=== PATIENT | male | born 1940 | race Caucasian/White ===

== ENCOUNTER 2019-07-19 14:53 | Inpatient (IN) ==
--- NOTE | 2019-07-19 15:53 | PROVIDER DOCUMENTATION ---
HPI-General Adult - General Chief Complaint: Fall Stated Complaint: FALL Time Seen by Provider: 07/19/19 15:32 Source: patient, family Allergies/Adverse Reactions: Patient Allergies Allergy/AdvReac Type Severity Reaction Status Date / Time clindamycin AdvReac Mild CONSTIPATIO Verified 06/23/18 06:27 N phenytoin sodium * AdvReac Mild Unknown Verified 06/23/18 06:27 [From Dilantin] phenytoin sodium extended * AdvReac Mild Unknown Verified 06/23/18 06:27 [From Dilantin] levofloxacin [From Levaquin] AdvReac Unknown Verified 06/23/18 06:27 Home Medications: Home Medication List Medication Instructions Recorded Confirmed Last Taken Type Acetaminophen [Tylenol] 500 mg PO PRN PRN 05/17/16 06/23/18 06/22/18 15:00 History Allopurinol 300 mg PO DAILY 05/17/16 06/23/18 06/22/18 04:00 History Insulin Glargine [Lantus] 35 units SUBQ DAILY 05/17/16 06/23/18 06/22/18 11:00 History Insulin Regular, Human [Humulin R 25 units SUBQ DIRECTED 05/17/16 06/23/18 06/22/18 10:00 History U-500] 20 units Lisinopril 20 mg PO DAILY 05/17/16 06/23/18 06/22/18 04:00 History Rivaroxaban [Xarelto] 20 mg PO DAILY 05/17/16 06/23/18 06/20/18 History Zolpidem [Ambien] 10 mg PO QHS 05/17/16 06/23/18 06/22/18 22:00 History Furosemide [Lasix] 20 mg PO QAM 05/18/16 06/23/18 06/22/18 04:00 History Aspirin EC 81 mg PO DAILY 01/17/17 06/23/18 06/22/18 04:00 History Lorazepam 1 mg PO TID 01/17/17 06/23/18 06/22/18 20:00 History Metoprolol Succinate E.r. [Toprol 100 mg PO DAILY 01/17/17 06/23/18 06/23/18 04:00 History Xl] Tamsulosin [Flomax] 0.4 mg PO DAILY 01/17/17 06/23/18 06/22/18 04:00 History Sulfamethoxazole/Trimethoprim 1 each PO BID 06/19/18 06/23/18 06/22/18 16:00 History [Bactrim Ds Tablet] Cephalexin [Keflex] 500 mg PO TID #15 capsule 06/23/18 Unknown Rx Hydrocodone/Acetaminophen [[place] 1 each PO Q6H PRN PRN #20 tablet 06/23/18 Unknown Rx 10-325 Tablet] Ondansetron HCl [Zofran] 4 mg PO Q4H PRN PRN #10 tablet 06/23/18 Unknown Rx - History of Present Illness -Gen Adult Nature of Presenting Problems: 79yo male presents via EMS with CC of recurrent falls. Pt and report that the patient fell twice today once from the couch and then again after missing the toilet. The pt does have a hx of falls due to neuropathy. The patient denies shortness of breath, chest pain, speech problems, or focal weakness. The pt denies LOC or head injury. Over the last few days the patient has had nausea and vomiting and decreased appetite. Review of Systems - Adult - REVIEW OF SYSTEMS - ADULT Constitutional: reports: no symptoms reported. denies: fever Eyes: reports: no symptoms reported. denies: eye pain Ears, Nose, Mouth & Throat: reports: no symptoms reported. denies: throat pain Cardiovascular: reports: no symptoms reported. denies: chest pain Respiratory: reports: cough. denies: shortness of breath Gastrointestinal: reports: abdominal pain Genitourinary: reports: no symptoms reported. denies: flank pain Musculoskeletal: reports: no symptoms reported Integumentary: reports: no symptoms reported Neurological: reports: loss of balance. denies: headache/migraines Psychiatric: reports: no symptoms reported. denies: alcohol/drug dependence Endocrine: reports: no symptoms reported Hematologic/Lymphatic: reports: no symptoms reported Allergic/Immunologic: reports: no symptoms reported Past History - Adult - PAST MEDICAL HISTORY-ADULT Review of Records: reports: Old Records Reviewed, Nursing Assessment Review, Medications Reviewed Cardiovascular: reports: CAD, other (carotid artery disease) Respiratory: denies: COPD - PRIOR SURGERIES/PROCEDURES Surgical/Procedure History: reports: CABG - IMMUNIZATION STATUS Childhood Immunizations: See Nurse Assessment Flu Vaccine: See Nurse Assessment - SOCIAL HISTORY Smoking: denies Substance Use: none/never Alcohol Use Frequency: never Physical Exam-General - CONSTITUTIONAL General Appearance: appears well, alert, no apparent distress - EYES Eyes: negative: conjuctival exudate, sclera injected, scleral icterus - HEAD, EARS, NOSE, MOUTH & THROAT HENMT: normocephalic/atraumatic, pharynx normal. negative: moist mucous membranes (dry) - NECK Neck: non-tender, supple - RESPIRATORY Respiratory: no respiratory distress, wheezing (bilaterally) - CARDIOVASCULAR Cardiovascular: no edema, tachycardia, other (irregular) - GASTROINTESTINAL (ABDOMEN) Abdominal Exam: soft, tenderness (mild). negative: guarding, rebound - MUSCULOSKELETAL Extremity: non-tender. negative: deformity, swelling - SKIN Integumentary: normal color, warm/dry. negative: cyanosis, diaphoresis, erythema - NEUROLOGIC Neurologic: referral agent II-XII nml as tested, no motor/sensory deficits, other (no pronator drift). negative: abnormal cerebellar tests, aphasia - PSYCHIATRIC Psych/Mental Status: normal mood/affect, normal thought content, normal thought process Progress - PLAN OF CARE/RESULTS Progress/Plan/Lab Results: Vital Signs - 8 hr 07/19/19 15:00 Temperature 98 F Pulse Rate 104 H Respiratory Rate 18 Blood Pressure 132/61 O2 Sat by Pulse Oximetry 91 L Result Diagrams: 07/19/19 17:06 07/19/19 17:06 - REASSESSMENT Reassessment #1 Status: other (Pt reportedly dropped to high 80s when standing and he does appear to have new onset heart failure with BNP almost 4000. He also has a UTI. Given current symptoms and recurrent falls with new onset heart failure, discussed case with hospitalist who have agreed to admission.) - XRAY 1 XRAY Study: Chest Impression: See EMR Report ( Patient: EVI MICHELLE [facility] Date: 07/19/19#: [id number] : 1940DM Status: REG [facility]#: [id number] Age/Sex: 79/MRoom/Bed: Loc: ED Ordering Physician: Edu rBavo MD Family Physician: Uzma Perry MD Reason for Procedure: Falls Signed EXAM: CHEST-2 VIEWS - 07/19/2019 HISTORY: Falls TECHNIQUE: Chest two views COMPARISON: 06/02/2018 FINDINGS: Heart size appears within normal limits. There is prosthetic aortic valve again seen. Inspiration is mildly shallow, with basilar subsegmental atelectasis. There is some prominence of central vascular markings. There is no dense consolidation, pleural effusion, or pneumothorax identified. IMPRESSION: Mildly shallow inspiration, with mild basilar atelectasis. Possible central vascular congestion. Electronically signed by Frank Woodward 07/19/2019 4:21 PM 07/19/19 1621 Interpreting Physician: Frank Woodward MD Dictated Date/Time: 07/19/19 1619 cc: Edu Bravo MD; Uzma Perry MD) - CT/MRI 1 CT Study: Head Impression: See EMR Report (Department of Imaging Patient: EVI MICHELLE Date: 07/19/19MR#: [id number] : 1940DM Status: REG ERAcct#: [id number] Age/Sex: 79/MRoom/Bed: Loc: ED Ordering Physician: Edu Bravo MD Family Physician: Uzma Perry MD Reason for Procedure: Falls ___ Signed EXAM: CT HEAD/C-SPINE W/O CONTRAST - 07/19/2019 HISTORY: Falls TECHNIQUE: CT head/cervical spine without contrast COMPARISON: 11/11/2011 CT head FINDINGS: CT head: There are atrophic changes and mild chronic microvascular ischemic changes. There is no indication of recent i nfarct, although acute infarcts may not be immediately visible. There are chronic small basal ganglia calcifications. There is no evidence of intracranial hemorrhage, mass effect, or midline shift. There is no evidence of skull fracture. There is mild paranasal sinus disease noted. CT cervical spine: The bones appear osteopenic. There is levo rotatory scoliosis versus artifact of positioning. There are substantial degenerative changes at atlantoaxial articulation. There is multilevel degenerative disc and degenerative facet disease. There is no fracture or subluxation identified. IMPRESSION: CT head: No visible acute intracranial abnormality. No evidence of intracranial injury. CT cervical spine: No evidence of fracture or subluxation. This exam was performed using automated exposure control, adjustment of mA or kV according to patient size, and/or use of iterative reconstruction technique. Electronically signed by Frank Woodward 07/19/2019 4:37 PM 07/19/19 267 Interpreting Physician: Frank Woodward MD Dictated Date/Time: 07/19/19 2571) Departure - Departure Date of Disposition Decision: 07/19/19 Time of Disposition Decision: 18:52 DIAGNOSIS: Recurrent falls Heart failure Qualifiers: Heart failure type: unspecified Heart failure chronicity: acute Qualified Code(s): I50.9 - Heart failure, unspecified UTI (urinary tract infection) Qualifiers: Urinary tract infection type: site unspecified Hematuria presence: with hematuria Qualified Code(s): N39.0 - Urinary tract infection, site not specified Disposition: ADMITTED INPATIENT 09 Certified Medical Emergency: Emergent Condition: Fair Referrals and Follow-Ups: Uzma Perry MD [Primary Care Provider] - - Critical Care Note This patient required my direct & personal management of CC.: No Attestation - Physician/ GABRIEL Attestation Patient care was provided by Advanced Practice Provider:: No The physician spent face to face time with patient:: Yes Advanced Practice Provider documentation review:: Supervising physician onsite and consulted in the evaluation and care of this patient. The physician did have a face to face encounter with the patient.
[2019-07-19] MEDS ORDERED: NS 500 ML IV ONE (15:57)
--- NOTE | 2019-07-19 16:23 | Diag Imaging Result Doc PS360 ---
EXAM: CHEST-2 VIEWS - 07/19/2019 HISTORY: Falls TECHNIQUE: Chest two views COMPARISON: 06/02/2018 FINDINGS: Heart size appears within normal limits. There is prosthetic aortic valve again seen. Inspiration is mildly shallow, with basilar subsegmental atelectasis. There is some prominence of central vascular markings. There is no dense consolidation, pleural effusion, or pneumothorax identified. IMPRESSION: Mildly shallow inspiration, with mild basilar atelectasis. Possible central vascular congestion. Electronically signed by Frank Woodward 07/19/2019 4:21 PM
--- NOTE | 2019-07-19 16:40 | Diag Imaging Result Doc PS360 ---
EXAM: CT HEAD/C-SPINE W/O CONTRAST - 07/19/2019 HISTORY: Falls TECHNIQUE: CT head/cervical spine without contrast COMPARISON: 11/11/2011 CT head FINDINGS: CT head: There are atrophic changes and mild chronic microvascular ischemic changes. There is no indication of recent infarct, although acute infarcts may not be immediately visible. There are chronic small basal ganglia calcifications. There is no evidence of intracranial hemorrhage, mass effect, or midline shift. There is no evidence of skull fracture. There is mild paranasal sinus disease noted. CT cervical spine: The bones appear osteopenic. There is levo rotatory scoliosis versus artifact of positioning. There are substantial degenerative changes at atlantoaxial articulation. There is multilevel degenerative disc and degenerative facet disease. There is no fracture or subluxation identified. IMPRESSION: CT head: No visible acute intracranial abnormality. No evidence of intracranial injury. CT cervical spine: No evidence of fracture or subluxation. This exam was performed using automated exposure control, adjustment of mA or kV according to patient size, and/or use of iterative reconstruction technique. Electronically signed by Frank Woodward 07/19/2019 4:37 PM
[2019-07-19 16:51] LABS: URINE SOURCE CLEAN CATCH
[2019-07-19 16:53] LABS: BILIRUBIN URINE NEGATIVE (NEGATIVE); BLOOD URINE SMALL (NEGATIVE); COLOR YELLOW; GLUCOSE URINE NEGATIVE (NEGATIVE); KETONE URINE TRACE mg/dL (NEGATIVE); LEUKOCYTES URINE LARGE (NEGATIVE); NITRITE URINE POSITIVE (NEGATIVE); PH URINE 6.5; PROTEIN URINE 50 mg/dL (NEGATIVE); SP GRAVITY URINE 1.013; TURBIDITY URINE TURBID (CLEAR); UROBILINOGEN URINE NORMAL (NORMAL)
[2019-07-19 16:56] LABS: UR EPITHELIAL CELLS <10 /HPF (<10); URINE BACTERIA 4+ /HPF; URINE WBC TNTC /HPF (<10)
[2019-07-19 17:05] LABS: URINE CASTS NONE SEEN; URINE CRYSTALS NONE SEEN; URINE SMALL ROUND CELLS NONE SEEN; URINE YEAST PRESENT
[2019-07-19 17:33] LABS: BASO# 0.03 X1000 (0.0-0.2); BASO% 0.3 % (0.0-0.8); EOS# 0.01 X1000 (0.0-0.7); EOS% 0.1 % (0.0-10.0); HEMATOCRIT 38.8 % (42.0-52.0); IMM GRAN# 0.06 X1000 (0.0-0.04); IMM GRAN% 0.5 % (0.0-0.5); LYMPH# 1.67 X1000 (1.2-3.4); LYMPH% 14.9 % (20.5-51.1); MCH 27.5 PG (27-31); MCHC 30.9 g/dL (33-37); MCV 88.8 FL (81-99); MONO# 0.98 X1000 (0.11-0.59); MONO% 8.7 % (1.7-9.3); MPV 9.4 FL (7.4-10.4); NEUT# 8.48 X1000 (1.4-6.5); NEUT% 75.5 % (42.2-75.2); PLT 252 X1000 (130-400); RBC 4.37 XMIL (4.7-6.1); RDW 15.8 % (11.5-14.5); WBC 11.23 X1000 (4.8-10.8)
[2019-07-19 17:40] LABS: INR 1.27; PROTIME 16.1 Seconds (11.0-16.0)
[2019-07-19 17:41] LABS: PTT 35.1 Seconds (22.3-41.8)
[2019-07-19 18:02] LABS: AGAP 16; ALB/GLOB RATIO 1.4; ALBUMIN 3.8 g/dL (3.5-5.0); ALKALINE PHOSPHATASE 83 U/L (32-122); BUN 13 mg/dL (8-22); CALCIUM 9.1 mg/dL (8.8-10.2); CHLORIDE 97 mmol/L (98-107); COSMO 276; ESTIMATED GFR > 60; GLUCOSE 170 mg/dL (70-104); GOT 17 U/L (10-34); GPT 13 U/L (10-44); POTASSIUM 4.3 mmol/L (3.5-5.1); SODIUM 136 mmol/L (136-145); TCO2 23 mmol/L (25-35); TOTAL BILIRUBIN 0.88 mg/dL (0.20-1.00); TOTAL PROTEIN 6.6 g/dL (6.3-8.3)
[2019-07-19 18:05] LABS: CK PROFILE 271 U/L (24-204)
[2019-07-19 18:24] LABS: CK INDEX 0.8 (0.0-2.5); CK-MB 2.24 ng/mL (0.0-5.0)
[2019-07-19] MEDS ORDERED: ROCEPHIN 2 GM in NS 50 ML IV ONE (18:38)
--- NOTE | 2019-07-19 20:37 | HISTORY AND PHYSICAL ---
PRIMARY CARE PHYSICIAN: Dr. Perry. CHIEF COMPLAINT: Fall. Mild shortness of breath. HISTORY OF PRESENTING ILLNESS: A 79-year-old male with a history of gout, coronary disease, atrial fibrillation, hypertension, diabetes mellitus type 2, who presented to emergency department after he had a fall. He states that he just felt weak and kind of landed on his sofa cushion which made him fall to the floor. He was brought to the emergency department. He had elevated BNP and he also had some mild shortness of breath and due to suspicion of heart failure, it was thought that he would need admission for further management. At the time of my examination, patient denied any headache, fever, chills, chest pain, hemoptysis, melena, but complained of some weakness and having a fall. PAST MEDICAL HISTORY: Includes gout, coronary artery disease, atrial fibrillation, hypertension, diabetes mellitus type 2, CVA, prostate cancer. PAST SURGICAL HISTORY: Aortic valve replacement, hernia repair, left carotid endarterectomy. ALLERGIES: Clindamycin, phenytoin. CURRENT MEDICATIONS: Include allopurinol 300 mg p.o. daily, aspirin 81 mg p.o. daily, Lasix 20 mg p.o. q.a.m., [place] 10/325 one p.o. q.6 hours, Lantus 35 units subcutaneous daily, insulin regular 25 units with meals, lisinopril 20 mg p.o. daily, lorazepam 1 mg p.o. t.i.d., metoprolol 100 mg p.o. daily, Xarelto 20 mg p.o. daily, tamsulosin 0.4 mg p.o. daily, Ambien 10 mg p.o. at bedtime. SOCIAL HISTORY: He is a former smoker. No history of alcohol or illicit drug use. FAMILY HISTORY: Positive for coronary disease in mother, father. REVIEW OF SYSTEMS: 14 point review of systems as in HPI. Other systems negative. PHYSICAL EXAMINATION: GENERAL: Cooperative, friendly male. He is resting more comfortably now. VITAL SIGNS: Temperature 98 degrees, pulse 104, respiration 18, blood pressure 132/61, saturating 91%. HEENT: Atraumatic, normocephalic. Extraocular movements intact. PERRLA. NECK: No masses. CHEST: Bibasilar rales. CARDIOVASCULAR: Irregular. ABDOMEN: Soft, obese. Positive bowel sounds. EXTREMITIES: No edema. NEUROLOGIC: He is awake, alert, oriented x3. : No bladder distention. SKIN: Warm. LABORATORIES AND STUDIES: WBC 11.23, hemoglobin 12.0, hematocrit 38.8, platelets 252,000. Sodium 136, potassium 4.3, chloride 97, CO2 is 23, BUN is 13, creatinine is 1.0, glucose 170. ProBNP is 3877. Chest x-ray shows possible central vascular congestion. UA is nitrite positive and large leukocytes. ASSESSMENT: A 79-year-old male with a history of coronary disease, atrial fibrillation, hypertension, diabetes mellitus type 2, who presented to emergency department after he had a fall. He was also having some weakness along with some mild shortness of breath. He was evaluated in the emergency department and due to his presenting symptoms he will need admission for further management. 1. Congestive heart failure unspecified. 2. Suspected urinary tract infection. 3. Atrial fibrillation. 4. Diabetes mellitus type 2. PLAN: 1. We will admit patient to medical floor with telemetry. 2. We will check an echocardiogram. 3. Continue gentle diuresis with Lasix. 4. Consult Cardiology. 5. Check urine cultures. Start patient on IV antibiotics. 6. We will monitor patient on telemetry and continue his anticoagulation. 7. Monitor blood glucose and continue patient on sliding scale insulin regimen. 8. The patient is already on Xarelto and this will suffice for DVT prophylaxis. 9. We will continue to follow, reassess, make further recommendation based on patient's clinical course. cc: Sam Turner MD
--- NOTE | 2019-07-19 20:47 | EKG Report ---
Test Performed on : 07/19/2019 7:25:06 PM Test Reason : Falls Blood Pressure : / mmHG Vent. Rate : 101 BPM Atrial Rate : 278 BPM P-R Int : 000 ms QRS Dur : 088 ms QT Int : 370 ms P-R-T Axes : 102 006 046 degrees QTc Int : 479 ms Atrial flutter. with variable AV block. Possible Anterior infarct , age undetermined Abnormal ECG When compared with ECG of 12-JUN-2018 15:01, Atrial flutter. has replaced Sinus rhythm. ST elevation now present in Inferior leads Nonspecific T wave abnormality no longer evident in Inferior leads Unconfirmed Result
[2019-07-19] MEDS ORDERED: ZOFRAN IV PRN (21:53)
[2019-07-19] MEDS ORDERED: TYLENOL PO PRN (21:53)
[2019-07-19] MEDS: HUMULIN R SUBQ SCH (22:45)
[2019-07-19] MEDS: LASIX IV SCH (22:45)
[2019-07-19] MEDS: VOLTAREN 1% GEL TOP SCH (22:46)
[2019-07-19] MEDS ORDERED: ATIVAN PO SCH (23:00)
[2019-07-19] MEDS: ULTRACET 37.5MG/325MG PO PRN (23:41)
[2019-07-19] MEDS: AMBIEN PO SCH (23:41)
[2019-07-20] MEDS: ATIVAN PO SCH ×4 (05:52→21:29)
[2019-07-20] MEDS: HUMULIN R SUBQ SCH ×5 (05:53→21:29)
--- NOTE | 2019-07-20 07:11 | Diag Imaging Result Doc PS360 ---
EXAM: CT HEAD W/O CONTRAST 07/20/2019 HISTORY: Fall, hit head TECHNIQUE: This exam was performed using automated exposure control, adjustment of mA or kV according to patient size, and/or use of iterative reconstruction technique. COMMENT: There are patchy lucencies throughout the white matter of both hemispheres. This is particularly evident in the areas of the atria of the lateral ventricles. There are small lacunae in the right caudate nucleus and there are calcifications in the globus pallidus bilaterally. There is no evidence of mass effect, bleed, or abnormal extra-axial fluid collection. There are no significant changes since 07/19/2019. The calvarium is intact. There is some mucosal thickening in the anterior ethmoid air cells and the right maxillary sinus. IMPRESSION: Chronic ischemic changes. No evidence of acute intracranial disease. Ethmoid and mild right maxillary chronic sinusitis. Electronically signed by Nomi Altman 07/20/2019 7:09 AM
[2019-07-20] MEDS: ASPIRIN EC PO SCH (08:04)
[2019-07-20] MEDS: XARELTO PO SCH (08:04)
[2019-07-20] MEDS: ULTRACET 37.5MG/325MG PO PRN ×2 (08:06→16:57)
[2019-07-20] MEDS: VOLTAREN 1% GEL TOP SCH ×2 (08:12→21:30)
[2019-07-20 08:18] LABS: BASO# 0.02 X1000 (0.0-0.2); BASO% 0.3 % (0.0-0.8); EOS# 0.03 X1000 (0.0-0.7); EOS% 0.4 % (0.0-10.0); HEMATOCRIT 38.1 % (42.0-52.0); HEMOGLOBIN 11.5 g/dL (14.0-18.0); IMM GRAN# 0.06 X1000 (0.0-0.04); IMM GRAN% 0.8 % (0.0-0.5); LYMPH# 1.61 X1000 (1.2-3.4); LYMPH% 21.3 % (20.5-51.1); MCHC 30.2 g/dL (33-37); MCV 89.4 FL (81-99); MONO# 0.92 X1000 (0.11-0.59); MONO% 12.2 % (1.7-9.3); MPV 9.5 FL (7.4-10.4); NEUT# 4.91 X1000 (1.4-6.5); PLT 259 X1000 (130-400); RBC 4.26 XMIL (4.7-6.1); RDW 15.9 % (11.5-14.5); WBC 7.55 X1000 (4.8-10.8)
[2019-07-20 08:49] LABS: AGAP 15; BUN 15 mg/dL (8-22); CALCIUM 9.5 mg/dL (8.8-10.2); CHLORIDE 97 mmol/L (98-107); COSMO 278; CREATININE 0.9 mg/dL (0.7-1.2); ESTIMATED GFR > 60; GLUCOSE 161 mg/dL (70-104); POTASSIUM 4.7 mmol/L (3.5-5.1); SODIUM 137 mmol/L (136-145); TCO2 25 mmol/L (25-35)
[2019-07-20] MEDS: LASIX IV SCH ×2 (10:54→21:29)
--- NOTE | 2019-07-20 14:09 | PROGRESS NOTE ---
DATE: 07/20/2019 Mr. Wallace a patient of Dr. Perry, 79-year-old, history of gout, coronary artery disease, atrial fibrillation, hypertension, diabetes mellitus type 2, presented to the emergency department after he had a fall. States that he just felt weak and kind of landed on the sofa cushion which made him fall on the floor, brought to the emergency department had elevated BNP and also some mild shortness of breath. Due to suspicion of heart failure they put him in the hospital. PAST MEDICAL HISTORY: Once again includes 1. Gout. 2. Coronary artery disease. 3. Atrial fibrillation. 4. Hypertension. 5. Diabetes mellitus type 2. 6. History of CVA. 7. History of prostate cancer. He has aortic valve replacement, hernia repair, left carotid endarterectomy. EXAM: Today he states he feels better. He is breathing comfortably. Temperature 98.2 degrees, pulse 70, respirations 18, blood pressure 149/50. Pupils are equal and round.Lungs: Clear in all lung [place]. Cardiovascular: Regular rhythm and rate without murmur or S3. Abdomen: Soft. Skin: Warm and dry. LAB: Review of his lab and his radiographic studies, head CT without contrast was chronic ischemic changes. No evidence of acute intracranial disease. Ethmoid and mild right maxillary chronic sinusitis. Head and cervical CT no visible acute intracranial abnormality. No evidence of intracranial injury. CT of the spine, no evidence of fracture, subluxation. Chest x-ray mild shallow inspiration with mild basilar atelectasis, possible central vascular congestion. ASSESSMENT AND PLAN: 1. Congestive heart failure unspecific, some signs of pulmonary venous hypertension. 2. Suspected urinary tract infection. 3. Atrial fibrillation. 4. Diabetes mellitus type 2. He has underlying history of coronary artery disease and atrial fibrillation, hypertension with diabetes so going to continue to have him on telemetry. He is already on Xarelto. 5. Review of his orders, getting aspirin 81 mg a day, diclofenac topical treatment for his arthritis, Lasix 20 mg IV q.12 and Xarelto 20 mg p.o. daily, takes Ambien 10 mg at night. Cardiology is following. Review of his lab from today white count 7550, hematocrit 38, platelet count 259,000, sodium 137, potassium 4.7, chloride 97, BUN 15, creatinine 0.9, blood sugars 202, 181, 161, 166. cc: Aden Lopez MD
[2019-07-20] MEDS: PRINIVIL PO SCH (17:25)
[2019-07-20] MEDS: TOPROL XL PO SCH (17:25)
[2019-07-20] MEDS ORDERED: AMBIEN PO SCH (21:00)
[2019-07-20] MEDS: AMBIEN PO SCH (21:29)
[2019-07-21] MEDS: HUMULIN R SUBQ SCH ×4 (06:01→21:26)
[2019-07-21] MEDS: ATIVAN PO SCH ×3 (06:09→21:24)
[2019-07-21] MEDS: XARELTO PO SCH (08:25)
[2019-07-21] MEDS: PRINIVIL PO SCH (08:25)
[2019-07-21] MEDS: ASPIRIN EC PO SCH (08:25)
[2019-07-21] MEDS: TOPROL XL PO SCH (08:25)
[2019-07-21] MEDS: VOLTAREN 1% GEL TOP SCH ×3 (08:26→21:28)
[2019-07-21] MEDS: FLOMAX PO SCH (10:11)
[2019-07-21] MEDS: ZYLOPRIM PO SCH (10:11)
[2019-07-21] MEDS: LANTUS INSULIN SUBQ SCH (10:11)
[2019-07-21] MEDS: LASIX IV SCH ×2 (10:11→21:25)
--- NOTE | 2019-07-21 10:16 | PROGRESS NOTE ---
DATE: 07/21/2019 SUBJECTIVE: This patient seems to be feeling better today compared with the previous days. He is not having shortness of breath at this moment, but he does have generalized weakness. I will request a new echocardiogram since I do not have one in the system. I will continue with same management. I will add antibiotics since he has chronic UTIs. Apparently, he has been seen by Dr. Anthony around 6 weeks ago. He has a history of BPH. He has been admitted for possible CHF exacerbation. He is in atrial fibrillation, rate controlled and anticoagulation. OBJECTIVE: Vital Signs: Temperature 98 degrees, pulse 71, respiratory rate 19, blood pressure 116/41, oxygen saturation 100% on room air. HEENT: Head normocephalic. He does have a right periorbital ecchymosis. Chest: Clear to auscultation. Some crepitus at the bases. Cardiovascular: Irregularly irregular rate and rhythm. Abdomen: Soft. He does have a large scar at the level of the lower abdomen with a chronic wound. I do not see any open wound or secretion from that area. Extremities: 1+ lower extremity edema. No clubbing. No cyanosis. Neurological: The patient is awake and alert. He is oriented x3. No focal deficits. LABORATORY: No lab work done today. I will repeat the lab work in the morning. ASSESSMENT AND PLAN: 1. Likely CHF. He does have a associate attorney but not here in [place]. Apparently he has a history of aortic valve replacement. I will get a new echocardiogram since I do not have one in the system. I will continue with same management for now since he is feeling better. 2. Urinary tract infection due to Citrobacter primary. He does have a long history of urinary tract infection before with Escherichia coli and barby. Apparently he has he has some problems with levofloxacin and ceftriaxone, has an intermittent sensitivity to these bacteria. I will start this patient on nitrofurantoin to see how he does and likely he needs to be seen by either an Infectious Disease doctor and/or urologist. As per the patient he saw the urologist around 6 weeks ago. 3. BPH. Continue with Flomax. 4. Atrial fibrillation, rate controlled. Continue with Xarelto and Toprol-XL. 5. History of gout, aware. 6. History of coronary artery disease. We will check an echocardiogram to start from there. 7. Type 2 diabetes. I have placed this patient back on his home medications. I will get a hemoglobin A1c as well. 8. Generalized weakness and physical deconditioning. This patient basically came also because he had a fall with a right eye bruise. I will ask Physical Therapy and Occupational Therapy to evaluate this patient to see if he needs to go to a rehab center. cc: Kiet Corbin MD
--- NOTE | 2019-07-21 12:35 | EKG Report ---
Test Performed on : 07/21/2019 12:23:26 PM Test Reason : afib Blood Pressure : / mmHG Vent. Rate : 069 BPM Atrial Rate : 276 BPM P-R Int : 000 ms QRS Dur : 100 ms QT Int : 450 ms P-R-T Axes : 092 -02 046 degrees QTc Int : 482 ms Critical Test Result: STEMI Atrial flutter. with 4:1 AV conduction. Inferior infarct , possibly acute ACUTE [place] / STEMI Abnormal ECG When compared with ECG of 19-JUL-2019 19:25, (Unconfirmed) Inferior infarct is now present ST no longer depressed in Anterior leads Confirmed by Bernardo Barrios MD ([id number]) on 07/22/2019 7:21:43 PM
--- NOTE | 2019-07-21 13:08 | Diag Imaging Result Doc PS360 ---
EXAM: CHEST-2 VIEWS HISTORY: shortness of breath TECHNIQUE: Two views COMPARISON: 07/19/2019 FINDINGS: The lungs are well expanded. The heart is not enlarged. A heart valve has been replaced. The vessels are not distended. There are no infiltrates. No pleural effusions. IMPRESSION: No acute abnormality. Electronically signed by Brennan Mancia 07/21/2019 1:05 PM
[2019-07-21] MEDS: BETAPACE PO SCH ×2 (13:51→21:24)
[2019-07-21 14:12] LABS: CALCIUM 9.2 mg/dL (8.8-10.2); CREATININE 1.2 mg/dL (0.7-1.2); MAGNESIUM 1.5 mg/dL (1.5-2.7); POTASSIUM 4.2 mmol/L (3.5-5.1)
[2019-07-21] MEDS: MACRODANTIN PO SCH ×2 (14:16→21:24)
[2019-07-21] MEDS: ULTRACET 37.5MG/325MG PO PRN ×2 (14:23→21:40)
--- NOTE | 2019-07-21 14:56 | CONSULTATION ---
DATE OF CONSULTATION: 07/21/2019 IMPRESSION: 1. Weakness and fall but no syncope. 2. Paroxysmal fibrillation in the past with the patient having recent onset of atrial flutter. 3. Aortic valve disorder with previous aortic valve replacement with bioprosthesis. 4. Severe aortic stenosis. 5. Obesity. 6. Hypertension. 7. Type 2 diabetes mellitus. 8. Urinary tract infection presently. 9. Status post recent hernia repair. RECOMMENDATIONS: 1. Continue current anticoagulation regimen. 2. Switch from metoprolol to sotalol 80 mg p.o. b.i.d. in an effort to restore/maintain sinus rhythm. 3. Repeat chest x-ray. 4. Check magnesium level. 5. Conservative cardiovascular management overall. 6. Given degree of weakness that seems to be persistent, he may very well benefit from rehabilitation at detention facility prior to returning home. 7. Treat urinary tract infection as you are doing. HISTORY: This 79-year-old, white male with past history of paroxysmal atrial arrhythmias, previous aortic valve replacement with bioprosthesis for severe aortic stenosis, hypertension, type 2 diabetes mellitus, obesity, recent hernia repair, and recent urinary tract infection was admitted after he suffered a fall. He describes being severely weak and slipped down to the floor from the couch and could not get up. Fire department was reportedly called and insisted that he come to the hospital. He has been persistently weak. He was noted to be in atrial flutter. On his previous admission in [place] earlier this year, he was in sinus rhythm. He denies any chest pain or shortness of breath on room air. He is not aware of any fever. PAST MEDICAL HISTORY: 1. Aortic valve disorder with previous aortic valve replacement for severe aortic stenosis. Patient had bioprosthesis placed. 2. Paroxysmal atrial arrhythmias. 3. Hypertension. 4. Type 2 diabetes mellitus. 5. Obesity. 6. Previous cerebrovascular accident. 7. Peripheral vascular disease. 8. Prostate cancer. 9. Gout. 10. Past surgical history includes aortic valve replacement with bioprosthesis, left carotid endarterectomy, hernia repair on 2 occasions, appendectomy, tonsillectomy, unspecified abdominal surgery, and unspecified hip surgery. 11. He has multiple drug allergies as listed in the chart. MEDICATIONS PRIOR TO ADMISSION: As listed. He continues on chronic anticoagulation. SOCIAL HISTORY: He is and lives with his . Does not smoke or use alcohol. FAMILY HISTORY: Negative for premature coronary disease. REVIEW OF SYSTEMS: Pulmonary: Negative. Gastrointestinal.: Noncontributory beyond history of present illness. Constitutional: Negative. Review of systems negative/noncontributory beyond history of present illness with 14 total systems reviewed. PHYSICAL EXAMINATION: General: Reveals an obese, elderly white male in no distress on room air. Vital signs: Blood pressure 116/41, heart rate 71, oxygen saturation 98% on room air. HEENT: Extraocular movements appear intact. Mucous membranes are moist. Neck: Supple without discernible jugular venous distention. There are no carotid bruits. Chest: Clear to auscultation bilaterally. Cardiac Exam: Irregular rate and rhythm without appreciable murmur, rub, or gallop. Abdomen: Soft. Bowel sounds audible. Extremities: Without edema. Neurologic: Reveals him to be awake/alert and oriented. Speech is fluent. He moves all 4 extremities equally well. PERTINENT DATA: Twelve lead EKG demonstrates atrial flutter with controlled rate and 2:1 AV conduction. The 12 lead EKG demonstrates atrial flutter with 4:1 AV conduction and nonspecific ST and T-wave abnormality. LABORATORY DATA: Includes a sodium 137, potassium 4.7, chloride 97, carbon dioxide 25, BUN 15, creatinine 0.9. Glucose 161. CPK 271, CPK MB 2.24, CPK MB index 0.8, pro-B natriuretic peptide level 3977. White blood cell count 7.55, hematocrit 38.1, hemoglobin 11.5, platelet count 259,000. Urinalysis noteworthy for [id number]-count white blood cells. Chest x-ray is reviewed and is a poor film due to poor inspiration. cc: Pancho Brunner MD
[2019-07-21] MEDS: AMBIEN PO SCH (21:24)
[2019-07-22] MEDS: MACRODANTIN PO SCH ×2 (02:22→08:50)
[2019-07-22] MEDS: HUMULIN R SUBQ SCH ×4 (06:06→21:14)
[2019-07-22] MEDS: ATIVAN PO SCH ×3 (06:08→20:22)
[2019-07-22 07:25] LABS: HEMOGLOBIN A1C 7.1 % (4.8-6.0)
[2019-07-22 07:28] LABS: CALCIUM 8.9 mg/dL (8.8-10.2); CREATININE 1.2 mg/dL (0.7-1.2); POTASSIUM 3.9 mmol/L (3.5-5.1)
--- NOTE | 2019-07-22 08:11 | EKG Report ---
Test Performed on : 07/22/2019 06:32:21 AM Test Reason : afib/aflutter Blood Pressure : / mmHG Vent. Rate : 051 BPM Atrial Rate : 051 BPM P-R Int : 316 ms QRS Dur : 080 ms QT Int : 480 ms P-R-T Axes : 090 -12 001 degrees QTc Int : 442 ms Atrial flutter. Inferior infarct (cited on or before 19-JUL-2019) Anterior infarct , age undetermined Abnormal ECG When compared with ECG of 21-JUL-2019 12:23, (Unconfirmed) Questionable change in QRS duration Anterior infarct is now present Confirmed by Bernardo Barrios MD ([id number]) on 07/22/2019 7:32:02 PM
[2019-07-22] MEDS: ZYLOPRIM PO SCH (08:50)
[2019-07-22] MEDS: BETAPACE PO SCH ×2 (08:50→20:22)
[2019-07-22] MEDS: ULTRACET 37.5MG/325MG PO PRN ×2 (08:50→18:12)
[2019-07-22] MEDS: ASPIRIN EC PO SCH (08:50)
[2019-07-22] MEDS: PRINIVIL PO SCH (08:50)
[2019-07-22] MEDS: FLOMAX PO SCH (08:50)
[2019-07-22] MEDS: XARELTO PO SCH (08:50)
[2019-07-22] MEDS: VOLTAREN 1% GEL TOP SCH ×2 (08:51→20:24)
[2019-07-22] MEDS ORDERED: LASIX IV SCH (09:00)
[2019-07-22] MEDS: MIRALAX PO SCH ×3 (09:16→20:23)
[2019-07-22] MEDS: LANTUS INSULIN SUBQ SCH (09:16)
--- NOTE | 2019-07-22 09:24 | PROGRESS NOTE ---
DATE: 07/22/2019 SUBJECTIVE: The patient seems to be feeling better today, but he is complaining of generalized weakness. He has been evaluated by Cardiology Department. I will continue following their recommendations, pending echocardiogram results. OBJECTIVE: Vital Signs: Temperature 97.5 degrees, pulse 61, respiratory rate 18, blood pressure 95/62, oxygen saturation 99% on room air. HEENT: Head normocephalic. He does have a right periorbital ecchymosis. Chest: Clear to auscultation, some crepitus at the bases. Cardiovascular: Irregularly irregular rate and rhythm. Abdomen: Soft. He does have a large scar at the level of the lower abdomen which is chronic. I do not see any open wound or secretion from that area. Extremities: Trace to 1+ lower extremity edema. No clubbing. No cyanosis. Neurological: The patient is awake and alert. He is oriented x3. No focal deficits. LABORATORY: Sodium 133, potassium 3.9, chloride 93, bicarbonate 25, BUN 35, creatinine 1.2, glucose 143, calcium 8.9, hemoglobin A1c 7.1. ASSESSMENT AND PLAN: 1. Paroxysmal atrial fibrillation with recent atrial flutter, seems to be better controlled, continue anticoagulation and medications. Cardiology on board. 2. Aortic valve disorder with previous aortic valve replacement, seems to be stable. We will continue with same management for now. Cardiology Department on board. 3. Severe aortic stenosis as above. 4. Urinary tract infection with Citrobacter. 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 Apparently, I cannot put this patient on levofloxacin because he had some problems before with tendinitis/tendon rupture, and ceftriaxone has an intermediate sensitivity. We will continue with nitrofurantoin. He is not complaining of any kind of burning sensation or symptoms, but given his presentation I will continue with that, and I will try to get a urologist as an outpatient who saw this patient. 5. Benign prostatic hypertrophy continue with Flomax. 6. Atrial fibrillation, rate controlled. Continue with Xarelto and Toprol-XL. 7. History of gout, aware. 8. History of coronary artery disease. Pending echocardiogram. 9. Type 2 diabetes. Continue with his home medication. Hemoglobin A1c is good at 7.1. 10. Generalized weakness and physical deconditioning. The plan is to send this patient to a rehab center. He has been falling multiple times. Physical therapy on board, as well as occupational therapy. cc: Kiet Corbin MD
--- NOTE | 2019-07-22 15:21 | PROGRESS NOTE ---
DATE: 07/22/2019 SUBJECTIVE: Patient denies chest discomfort or shortness of breath. He still has some generalized weakness. He continues in atrial flutter with controlled rate despite initiation of sotalol yesterday. He has been on Xarelto long-term without interruption in over 6 months. OBJECTIVE: Vital Signs: Blood pressure 98/62, heart rate 62 with ECG monitor showing atrial flutter. Oxygen saturation 98% on room air. Neck: There is no significant jugular venous distention. Chest: Chest is clear to auscultation bilaterally. Cardiac Exam: Reveals an irregular rate and rhythm without appreciable murmur or gallop. Abdomen: Soft. Bowel sounds normal. Extremities: Without edema. LABORATORY DATA: Includes a sodium 133, potassium 3.9, chloride 93, carbon dioxide 25, BUN 35, creatinine 1.2. Glucose 143, magnesium 1.7. IMPRESSION: 1. Recent weakness and associated fall, but no syncope. 2. Paroxysmal atrial arrhythmias. Patient currently in atrial flutter. 3. Aortic valve disorder with previous aortic valve replacement with bioprosthesis. The patient did not have any significant coronary disease at that time. Aortic valve replacement was performed for severe stenosis. 4. Obesity. 5. Hypertension. 6. Type 2 diabetes mellitus. 7. Urinary tract infection with Citrobacter species. 8. Status post recent hernia repair. RECOMMENDATIONS: 1. Continue Xarelto at current dose. 2. Continue sotalol 80 mg p.o. b.i.d. 3. If atrial flutter persists, pursue cardioversion in a.m. 4. Favor use of cefepime for urinary tract infection. 5. Conservative cardiovascular management overall. 6. Given degree of weakness, this seems to be persistent and he would probably benefit from rehabilitation at [facility] prior to returning home. cc: Pancho Brunner MD
[2019-07-22] MEDS: MAXIPIME 0.5 GM in NS 50 ML IV SCH (20:22)
[2019-07-22] MEDS: AMBIEN PO SCH (20:22)
--- NOTE | 2019-07-22 21:10 | ECHO REPORT ---
ORDER DATE: 07/19/2019 MEASUREMENTS: Septal thickness 0.8, left ventricular internal diameter end diastole 4.2, posterior wall thickness 0.8, left ventricular internal diameter systole 2.9, aortic root 2.5. SUMMARY: 1. Fair quality study. Intravenous echo contrast agent Optison was utilized to enhance endocardial definition. 2. Aortic valve was replaced with bioprosthesis, which is not well imaged. The peak gradient across aortic valve is 22 mmHg with a mean gradient of 11 mmHg. Doppler values are consistent with adequate aortic valve prosthetic function. Mild mitral annular calcification is demonstrated. There is trace mitral regurgitation. Tricuspid valve was without evidence of structural abnormality while pulmonic valve is not well demonstrated. There is trace tricuspid regurgitation. The estimated systolic PA pressure by Doppler is 40 mmHg suggesting mild pulmonary hypertension. The aortic root is normal in size. 3. Normal left ventricular dimensions suggested on two-dimensional images. The estimated left ventricular ejection fraction appears to be at least 65%. No regional wall motion abnormality can be appreciated. Left atrium is borderline enlarged. The right atrium and right ventricle are normal in size with normal right ventricular systolic function. 4. No pericardial effusion. 5. Inferior vena cava not well demonstrated. cc: MD Sam Gamboa MD
[2019-07-23] MEDS: HUMULIN R SUBQ SCH ×4 (05:59→23:31)
[2019-07-23] MEDS: ATIVAN PO SCH ×3 (05:59→21:45)
[2019-07-23 06:34] LABS: HEMATOCRIT 35.8 % (42.0-52.0); HEMOGLOBIN 11.3 g/dL (14.0-18.0); MCH 27.8 PG (27-31); MCHC 31.6 g/dL (33-37); MPV 9.5 FL (7.4-10.4); RBC 4.07 XMIL (4.7-6.1); RDW 15.5 % (11.5-14.5); WBC 7.58 X1000 (4.8-10.8)
[2019-07-23 07:04] LABS: AGAP 13; BUN 46 mg/dL (8-22); CALCIUM 9.2 mg/dL (8.8-10.2); CHLORIDE 92 mmol/L (98-107); COSMO 274; ESTIMATED GFR > 60; GLUCOSE 128 mg/dL (70-104); MAGNESIUM 1.8 mg/dL (1.5-2.7); PHOSPHORUS 4.3 mg/dL (2.7-4.5); POTASSIUM 4.3 mmol/L (3.5-5.1); SODIUM 130 mmol/L (136-145); TCO2 25 mmol/L (25-35)
--- NOTE | 2019-07-23 08:22 | EKG Report ---
Test Performed on : 07/23/2019 07:15:26 AM Test Reason : afib/aflutter Blood Pressure : / mmHG Vent. Rate : 048 BPM Atrial Rate : 249 BPM P-R Int : 000 ms QRS Dur : 092 ms QT Int : 490 ms P-R-T Axes : -83 -01 007 degrees QTc Int : 437 ms Critical Test Result: Low HR Atrial flutter. with variable AV block. Cannot rule out Inferior infarct (cited on or before 21-JUL-2019) Abnormal ECG When compared with ECG of 22-JUL-2019 06:32, Criteria for Anterior infarct are no longer present ST less depressed in Anterior leads T wave inversion no longer evident in Anterior leads Confirmed by Bernardo Barrios MD ([id number]) on 07/23/2019 8:18:44 PM
[2019-07-23] MEDS: MIRALAX PO SCH ×2 (10:14→21:45)
[2019-07-23] MEDS: LANTUS INSULIN SUBQ SCH (10:34)
[2019-07-23] MEDS: VOLTAREN 1% GEL TOP SCH ×2 (10:34→21:46)
[2019-07-23] MEDS: MAXIPIME 0.5 GM in NS 50 ML IV SCH ×2 (10:38→21:44)
[2019-07-23] MEDS: ZYLOPRIM PO SCH (10:39)
[2019-07-23] MEDS: BETAPACE PO SCH ×2 (10:40→21:44)
[2019-07-23] MEDS: LASIX PO SCH (10:41)
[2019-07-23] MEDS: ASPIRIN EC PO SCH (10:42)
[2019-07-23] MEDS: XARELTO PO SCH (10:42)
[2019-07-23] MEDS: FLOMAX PO SCH (10:42)
[2019-07-23] MEDS: PRINIVIL PO SCH (10:43)
--- NOTE | 2019-07-23 11:02 | PROGRESS NOTE ---
DATE: 07/23/2019 SUBJECTIVE: The patient seems to be feeling better. He is complaining of generalized weakness. Cardiology department probably will do a cardioversion today because he is still in atrial flutter. He has been placed NPO. OBJECTIVE: Vital Signs: Temperature 97.7 degrees, pulse 64, respiratory rate 17, blood pressure 121/63, oxygen saturation 100% on room air. HEENT: Head normocephalic. He does have a right periorbital ecchymosis. Chest: Clear to auscultation. Some crepitus at the bases. Cardiovascular: Irregularly irregular rate and rhythm. Abdomen: Soft. He does have a large scar at the level of the lower abdomen which is chronic and he seems to be healing well. I do not see any open wound or secretion from that area. Extremities: Trace to 1+ lower extremity edema. No clubbing. No cyanosis. Neurological Examination: The patient is awake and alert. He is oriented x3. No deficits. Laboratory: WBCs 7.5, hemoglobin 11.3, hematocrit 35.8, platelets 271,000. Sodium 130, potassium 4.3, chloride 92, bicarbonate 25, BUN 46, creatinine 1, glucose 128, calcium 9.2, magnesium 1.8. ASSESSMENT AND PLAN: 1. Paroxysmal atrial fibrillation with recent atrial flutter, seems to be better controlled. Continue with anticoagulation and medications. Cardiology on board. 2. Aortic valve disorder with previous aortic valve placement, seems to be stable. We will continue with the same management for now. Cardiology department on board. 3. Severe aortic stenosis, as above. 4. Urinary tract infection with Citrobacter. Continue with the same management. 5. Benign prostatic hypertrophy. Continue with Flomax. 6. Atrial fibrillation/flutter, rate controlled but the plan is to go ahead and do a cardioversion on this patient. 7. History of gout. Aware. 8. History of coronary artery disease. Echocardiogram showed a good ejection fraction of 65% with no regional wall motion abnormality and it looks like he has a right ventricular systolic function that is working fine, mild pulmonary hypertension. 9. Type 2 diabetes. Hemoglobin A1c is good at 7.1. Continue with home medications. 10. Generalized weakness and physical deconditioning. The plan is to send this patient to a rehab center once cardiology department is able to do the cardioversion, hopefully this week, but we will wait for the procedure. cc: Kiet Corbin MD
[2019-07-23] MEDS ORDERED: DIPRIVAN 1% ONE (11:35)
[2019-07-23] MEDS ORDERED: XYLOCAINE-MPF 2% ONE (11:35)
[2019-07-23] MEDS ORDERED: NS 1,000 ML ONE (11:58)
[2019-07-23] MEDS ORDERED: ANESTHESIA PB SET 88 IN 5742 ONE (11:58)
--- NOTE | 2019-07-23 12:32 | CARDIAC CATH REPORT ---
PROCEDURE NAME: - INDICATION FOR THE PROCEDURE: Atrial flutter. PROCEDURE PERFORMED: Direct-current cardioversion. PROCEDURE IN DETAIL: Mr. Wallace was brought to the catheterization laboratory in fasting state. Informed consent was obtained. Prepped in usual fashion. He was anesthetized with propofol. After adequate sedation, 1 shock was delivered in synchronized fashion at 120 joules with conversion to sinus rhythm. The patient tolerated the procedure well without any complications. cc: Aba Lopez MD
--- NOTE | 2019-07-23 12:59 | EKG Report ---
Test Performed on : 07/23/2019 12:42:49 PM Test Reason : post cardioversion Blood Pressure : / mmHG Vent. Rate : 064 BPM Atrial Rate : 064 BPM P-R Int : 322 ms QRS Dur : 094 ms QT Int : 468 ms P-R-T Axes : 054 001 034 degrees QTc Int : 482 ms Sinus rhythm. with 1st degree AV block. Prolonged QT Abnormal ECG When compared with ECG of 23-JUL-2019 07:15, (Unconfirmed) Sinus rhythm. has replaced Atrial flutter. Non-specific change in ST segment in Inferior leads Confirmed by Bernardo Barrios MD ([id number]) on 07/23/2019 8:26:42 PM
[2019-07-23] MEDS: ULTRACET 37.5MG/325MG PO PRN (16:30)
--- NOTE | 2019-07-23 20:07 | PROGRESS NOTE ---
DATE: 07/23/2019 SUBJECTIVE: Patient continued in atrial flutter and underwent cardioversion this morning, restoring sinus rhythm. He denies chest discomfort or shortness of breath on room air. OBJECTIVE: Blood pressure 118/53, heart rate 68 and regular with ECG monitor showing sinus rhythm. Oxygen saturation 99%. There is no significant jugular venous distention.Chest: Clear to auscultation bilaterally. Cardiac Exam: Reveals a regular rate and rhythm without appreciable murmur or gallop. Extremities: Without edema. LABORATORY DATA: Includes a white blood cell count of 7.5, a hematocrit of 35.8, hemoglobin of 11.3, platelet count of 271, Sodium 130, potassium 4.3, chloride 92, carbon dioxide 25, BUN 46, creatinine 1.0, glucose 128. IMPRESSION: 1. Recent weakness and associated fall, but no syncope. 2. Paroxysmal atrial arrhythmias. Patient found to be in atrial flutter which persisted, and he is now status post cardioversion with faith of sinus rhythm. 3. Aortic valve disorder with previous aortic valve replacement with bioprosthesis. Patient did not have any significant coronary disease at that time. Aortic valve replacement was performed for severe aortic stenosis. 4. Obesity. 5. Hypertension. 6. Type 2 diabetes mellitus. 7. Urinary tract infection with Citrobacter species. 8. Status post recent hernia repair. RECOMMENDATIONS: 1. Continue Xarelto at current dose. 2. Continue sotalol 80 mg p.o. b.i.d. 3. Continue to treat urinary tract infection with cefepime. 4. Conservative cardiovascular management overall. 5. Given degree of weakness that seems to be persistent, he would probably benefit from rehabilitation at [facility] facility prior to returning home. cc: Pancho Brunner MD
[2019-07-23] MEDS: AMBIEN PO SCH (21:44)
[2019-07-24] MEDS: ATIVAN PO SCH (06:43)
[2019-07-24] MEDS: HUMULIN R SUBQ SCH ×2 (06:43→11:19)
[2019-07-24 06:54] LABS: AGAP 12; BUN 40 mg/dL (8-22); CALCIUM 9.5 mg/dL (8.8-10.2); CHLORIDE 99 mmol/L (98-107); COSMO 283; CREATININE 0.9 mg/dL (0.7-1.2); ESTIMATED GFR > 60; GLUCOSE 130 mg/dL (70-104); PHOSPHORUS 3.8 mg/dL (2.7-4.5); POTASSIUM 4.4 mmol/L (3.5-5.1); SODIUM 136 mmol/L (136-145); TCO2 25 mmol/L (25-35)
--- NOTE | 2019-07-24 07:38 | EKG Report ---
Test Performed on : 07/24/2019 06:54:21 AM Test Reason : afib/aflutter Blood Pressure : / mmHG Vent. Rate : 058 BPM Atrial Rate : 058 BPM P-R Int : 300 ms QRS Dur : 100 ms QT Int : 476 ms P-R-T Axes : 000 004 016 degrees QTc Int : 467 ms Sinus bradycardia. with 1st degree AV block. Otherwise normal ECG When compared with ECG of 23-JUL-2019 12:42, No significant change was found Confirmed by Bernardo Barrios MD ([id number]) on 07/25/2019 10:49:56 AM
[2019-07-24] MEDS: ASPIRIN EC PO SCH (09:22)
[2019-07-24] MEDS: MIRALAX PO SCH (09:23)
[2019-07-24] MEDS: LASIX PO SCH (09:24)
[2019-07-24] MEDS: ZYLOPRIM PO SCH (09:24)
[2019-07-24] MEDS: FLOMAX PO SCH (09:25)
[2019-07-24] MEDS: XARELTO PO SCH (09:25)
[2019-07-24] MEDS: PRINIVIL PO SCH (09:26)
[2019-07-24] MEDS: BETAPACE PO SCH (09:26)
[2019-07-24] MEDS: MAXIPIME 0.5 GM in NS 50 ML IV SCH (09:28)
[2019-07-24] MEDS: ULTRACET 37.5MG/325MG PO PRN (10:22)
[2019-07-24] MEDS: VOLTAREN 1% GEL TOP SCH (11:19)
[2019-07-24] MEDS: LANTUS INSULIN SUBQ SCH (11:45)
--- NOTE | 2019-07-24 11:59 | DISCHARGE SUMMARY ---
ADMISSION DATE: 07/19/2019 DISCHARGE DATE: 07/24/2019 DISCHARGE DIAGNOSES: 1. Paroxysmal atrial flutter/fibrillation status post cardioversion. 2. Aortic valve disorder with previous aortic valve replacement. 3. Severe aortic stenosis. 4. Urinary tract infection with Citrobacter, recurrent. 5. Benign prostatic hypertrophy. 6. Atrial fibrillation/flutter. 7. History of gout. 8. History of coronary artery disease. 9. Type 2 diabetes. 10. Generalized weakness and physical deconditioning. PROCEDURES PERFORMED: 1. Chest x-ray dated 07/19/2019 impression: Mildly shallow inspiration, mild bibasilar atelectasis, possible central vascular congestion. 2. Head cervical spine CT scan dated 07/19/2019 impression: No visible acute intracranial abnormality, no evidence of fracture or subluxation. 3. Head CT scan dated 07/20/2019 impression: Chronic ischemic changes. No acute abnormality. Had mild right maxillary chronic sinusitis. 4. Cardioversion done on 07/23/2019. HOSPITAL COURSE: A 79-year-old male with a past medical history of gout, coronary artery disease, severe aortic stenosis status post replacement, atrial fibrillation, hypertension, diabetes, CVA and apparently prostate cancer, presented to the emergency department and was admitted on 07/19/2019, after he had a fall. He states that he just felt weak and landed on his sofa cushion which made him fall to the floor. He has an elevated BNP and also he has shortness of breath. He was admitted. He was on atrial fibrillation/flutter. Cardiology Department evaluated this patient and since he was still complaining of symptoms, they decided to do a cardioversion on 07/23/2019, and that was successful. He is feeling much better. He will be discharged to a rehab center. He is really weak. VITAL SIGNS: Temperature 97.3 degrees, pulse 79, respiratory rate 18, blood pressure 132/77, oxygen saturation 95% on room air. PHYSICAL EXAMINATION: HEENT: Head normocephalic. He has a right periorbital bruise due to the previous fall. Chest: Clear to auscultation. Some crepitus at the bases. Cardiovascular: RRR. Abdomen: Soft. He has a large scar at the level of the lower abdomen which is chronic and seems to be healing well. I do not see any open wound or secretion. Extremities: Trace lower extremity edema. No clubbing. No cyanosis. Neurological examination: Patient is awake, alert. He is oriented x3. He does have generalized weakness. LABORATORY: Sodium 136, potassium 4.4, chloride 99, bicarbonate 25. BUN 40, creatinine 0.9, glucose 130, calcium 9.5, magnesium 2. DISCHARGE MEDICATIONS: 1. Acetaminophen 500 mg p.o. q. 6 hours as needed. 2. Allopurinol 300 mg p.o. daily. 3. Aspirin 81 mg p.o. daily. 4. Keflex 500 mg p.o. b.i.d. for 7 more days. 5. Lasix 40 mg p.o. daily. 6. Lantus 35 units subcutaneous daily. 7. Insulin regular sliding scale as directed. 8. Lisinopril 20 mg p.o. daily. 9. Lorazepam 1 mg p.o. t.i.d. 10. MiraLAX 17 g p.o. b.i.d. 11. Xarelto 20 mg p.o. daily. 12. Sotalol 80 mg p.o. b.i.d. 13. Tamsulosin 0.4 mg p.o. daily. 14. Tramadol 50 mg t.i.d. as needed for pain. 15. Ambien 10 mg p.o. at bedtime. TIME SPENT: Time discharging this patient, doing the paperwork and explaining to the patient the whole situation around 35 minutes. cc: Kiet Corbin MD
[2019-07-24 12:23] VITALS: BP 110/49
== END 2019-07-24 13:45 | DRG 292 ==
LOC: SUPCPDRO → ED 14:53 → 3N 20:53 → SUATTDRO 20:53 → 2N 07-21 17:12
PROVIDERS: ATTEND Internal Medicine